=== PATIENT | male | born 1950 | race Caucasian/White ===

== ENCOUNTER 2024-02-29 06:50 | Day surgery (SDC) | payer MEDICARE, MEDICAID, SELFPAY ==
[2024-02-28 14:28] VITALS: BMI 22.6
[2024-02-29] VITALS (9 sets, daily range): BP systolic 96–115; BP diastolic 61–79; PULSE 69–86; RESP 11–18; TEMP 36.7–37.1; O2SAT 94–100; BMI 21.6
--- NOTE | 2024-02-29 07:00 | SUR.PREOP ---
PATIENT ARRIVES TO [facility] AT 0650 FOR COLONOSCOPY PROCEDURE. PER PATIENT LAST BOWEL MOVEMENT IS DARK BROWN. THIS NURSE ASKS PATIENT TO TRY AND HAVE A BOWEL MOVEMENT SO COLOR AND CONSISTENCY CAN BE CONFIRMED. PATIENT ATTEMPTS TO DEFECATE BUT IS UNABLE TO DO SO. LUCIE BARKLEY CALLS TO INFORM HIM. ORDERS A WATER ENEMA. LUCIE RN ADMINISTERS ENEMA, PATIENT TOLERATES 750ML OF ENEMA AND RETURN IS DARK BROWN LIQUID. LUCIE BARKLEY CALLS TO INFORM HIM OF ENEMA RETURN AND HE SAYS IT IS OKAY TO PROCEED WITH PROCEDURE. PATIENT INFORMED AND BROUGHT TO PRE-OP.
[2024-02-29] MEDS: MIDAZOLAM INJ 1 MG/ML VIAL 2 ML (ASD USE ONLY) 2 MG IV (07:52)
[2024-02-29] MEDS: DiphenhydrAMINE INJ 50 MG/ML VIAL 25 MG IV (07:52)
[2024-02-29] MEDS: fentaNYL CIT INJ 50 mCg/ML AMP 2ML (ASD USE ONLY) IV (07:52)
== END 2024-02-29 09:10 | disposition home or self-care (01) ==
PROVIDERS: PCP Family Medicine; Referring Provider Surgery; Visit Provider Surgery
PROC: 0DBE8ZX Excision of Large Intestine, Via Natural or Artificial Opening Endoscopic, Diagnostic (ICD-10-PCS; CPT 45380; principal; 2024-02-29 08:00)
DX: K62.89 Other specified diseases of anus and rectum (principal); K64.5 Perianal venous thrombosis; K57.30 Diverticulosis of large intestine without perforation or abscess without bleeding
CPT/HCPCS: 45378; J1200; J2250; J3010

== ENCOUNTER 2024-04-07 06:45 | Day surgery (SDC) | payer MEDICARE, MEDICAID, SELFPAY ==
[2024-04-07] VITALS (12 sets, daily range): BP systolic 112–133; BP diastolic 73–86; PULSE 67–78; RESP 11–18; TEMP 36.7–37; O2SAT 95–100; BMI 20.5
[2024-04-07] MEDS: SODIUM CHLORIDE 0.9% 100 ML IV (07:29)
[2024-04-07] MEDS: fentaNYL CIT INJ 50 mCg/ML AMP 2ML (ASD USE ONLY) IV (07:30)
[2024-04-07] MEDS: DiphenhydrAMINE INJ 50 MG/ML VIAL 25 MG IV (07:32)
--- NOTE | 2024-04-07 07:33 | SUR.PREOP ---
INFORMED THAT PATIENT'S BLOOD SUGAR IS 76. NO HYPOGLYCEMIC SYMPTOMS PRESENT AT THIS TIME. NO NEW ORDERS RECEIVED.
[2024-04-07] MEDS: MIDAZOLAM INJ 1 MG/ML VIAL 2 ML (ASD USE ONLY) 2 MG IV (07:41)
--- NOTE | 2024-04-07 09:25 | SUR.PHASEII ---
pt comes from a facility with a caregiver, per career center advisor pt does not have a steady gait and is at high risk for falls. pt stayed longer in recovery due to waiting on caregivers arrival and the assistance the pt required with getting dressed. pt was sent to facility with career center advisor, d/c instructions given to pt and caregiver. no concerns at this time from pt or caregiver.
== END 2024-04-07 09:10 | disposition home or self-care (01) ==
PROVIDERS: PCP Physician Assistant; Referring Provider Surgery; Visit Provider Surgery
PROC: 0DBE8ZX Excision of Large Intestine, Via Natural or Artificial Opening Endoscopic, Diagnostic (ICD-10-PCS; CPT 45380; principal; 2024-04-07 07:30)
DX: D12.2 Benign neoplasm of ascending colon (principal); K64.1 Second degree hemorrhoids; K64.5 Perianal venous thrombosis; K57.31 Diverticulosis of large intestine without perforation or abscess with bleeding
CPT/HCPCS: 45385; 45380; J1200; J2250; J3010; J7050

== ENCOUNTER → 2024-08-30 | Outpatient (CLI) | payer MEDICARE, MEDICAID, SELFPAY ==
--- NOTE | 2024-08-30 14:45 | XR_ITS ---
Examination: CT abdomen with intravenous contrast CT pelvis with intravenous contrast 2-D coronal reconstructions 2-D sagittal reconstructions Date and time of exam:August 30, 2024 at 1455 hours INDICATIONS: Left upper quadrant abdominal pain beginning one week ago. CTDI: vol (mGy) 6.24 DLP: (mGycm) 385 Technique: Multiple axial sections of the abdomen and pelvis have been obtained. 64 slice high-resolution scanner used. 3 mm axial sections have been obtained, post intravenous injection 60 cc [id number] 2-D sagittal, coronal reconstructions obtained. Low dose protocols were performed. One or more of the following dose reduction techniques were used; automated exposure control, adjustment of the mA and/or KV according to patient size, use of iterative reconstruction technique. Findings: No focal liver or splenic lesions No gallstones No pancreatic mass. Aorta normal size Left renal cysts, the largest 4.3 cm No renal or ureteral calculi Large amounts of stool throughout the entire colon including the rectum with wall thickening of the rectum No diverticulitis No bowel obstruction Urinary bladder wall thickening 2 mm anteriorly Severe osteopenia with advanced lumbar disc narrowing IMPRESSION: Large amounts of stool throughout the entire colon including the rectum with probable proctitis pattern involving the rectum with rectal wall thickening, recommend direct inspection of the rectum to exclude rectal tumor
== END | disposition home or self-care (01) ==
PROVIDERS: PCP Physician Assistant; Referring Provider Physician Assistant; Visit Provider Physician Assistant
DX: K62.89 Other specified diseases of anus and rectum (principal); R10.12 Left upper quadrant pain
CPT/HCPCS: 74177; A4649; Q9967

== ENCOUNTER 2025-01-12 15:10 | Inpatient (IN) | payer MEDICARE, MEDICAID, SELFPAY ==
--- NOTE | 2025-01-12 15:46 | XR_ITS ---
EXAMINATION: Lumbar spine 3 views TECHNIQUE: AP lateral: Lateral lower lumbar spine 3 views Date and time: January 12, 2025, 1554 hours INDICATIONS: Low back pain, chronic worse since January 13, 2025 FINDINGS: Lumbar dextroscoliosis 12 degrees Prominent lumbar spondylosis No acute lumbar fracture Moderate to advanced diffuse lumbar degenerative disc disease IMPRESSION: Moderate to advanced diffuse lumbar degenerative disc disease
--- NOTE | 2025-01-12 15:47 | PD.EDRME ---
Rapid Medical Screening Exam RME Arrival date/time: 01/12/25 15:10 79-year-old male with a history of developmentally delayed is brought to the emergency room by the caregiver with a chief complaint of the patient having increased lumbar back pain. According to the caregiver the patient was walking yesterday with no complications. Today the patient does not want to stand up and is unable to walk on his own I have greeted and performed a focused initial assessment of this patient. A comprehensive ED assessment and evaluation of the patient, analysis of all test results, and completion of the medical decision making process will be conducted by additional ED providers. Chief Complaint: Weakness Time Seen by Provider: 01/12/25 15:35 Vital signs reviewed by provider: Yes Exam: Lumbar back pain with palpation GCS of 15 Clinical Impression: Electrolyte imbalance/lumbar back pain
[2025-01-12 15:48] VITALS: BP 99/66; PULSE 113; RESP 19; TEMP 37.2; O2SAT 98; BMI 21.6
[2025-01-12] MEDS: KETOROLAC INJ 60 MG/2 ML VIAL 30 MG IM (16:12)
[2025-01-12 16:40] LABS: Basophils # (Auto) 0.0 Thou/mm3 (0.0-0.2); Basophils % (Auto) 1 % (0-2.5); Eosinophils # (Auto) 0.0 Thou/mm3 (0.0-0.5); Eosinophils % (Auto) 0 % (0-10); Hematocrit 44.6 % (41.0-53.0); Hemoglobin 15.3 g/dL (13.5-16.0); Immature Granulocytes Auto 0.03 Thou/mm3 (0.00-0.00); Lymphocytes # (Auto) 0.7 Thou/mm3 (1.0-4.8); Lymphocytes % (Auto) 8 % (10-50); Mean Corpuscular HGB Conc 34.3 g/dl (31.0-37.0); Mean Corpuscular Hemoglobin 32.3 pg (25.0-35.0); Mean Corpuscular Volume 94 fL (80-100); Monocytes # (Auto) 0.5 Thou/mm3 (0.0-0.8); Monocytes % (Auto) 6 % (0-12); Neutrophils # (Auto) 7.5 Thou/mm3 (1.8-7.7); Neutrophils % (Auto) 85 % (37-80); Nucleated Red Blood Cell # 0.00 Thou/mm3 (0.00-0.00); Nucleated Red Blood Cell % 0 /100 WBC (0); Platelet Count 210 Thou/mm3 (140-440); RDW Standard Deviation 46.7 fL (35.1-43.9); Red Blood Count 4.73 Miln/mm3 (4.50-5.90); White Blood Count 8.8 Thou/mm3 (3.8-10.6)
[2025-01-12 16:57] LABS: Alanine Aminotransferase 25 U/L (10-49); Albumin, Serum 4.5 gm/dL (3.4-4.8); Albumin/Globulin Ratio 2.4 (1.2-2.2); Alkaline Phosphatase 81 U/L (46-116); Anion Gap 13 (7-16); Aspartate Amino Transferase 53 U/L (0-34); BUN/Creatinine Ratio 23 Ratio (12-20); Bilirubin,Total 0.4 mg/dL (0.3-1.2); Blood Urea Nitrogen 18 mg/dL (9-23); Calcium 8.7 mg/dL (8.3-10.6); Calcium (Corrected) 8.7 mg/dL (8.5-10.1); Carbon Dioxide 22.5 mMol/L (20.0-31.0); Chloride 101 mMol/L (98-107); Creatinine (Component) 0.8 mg/dL (0.6-1.3); Estimated Creatinine Clearance 74.9 mL/min (>60); Globulin 1.9 gm/dL (2.3-3.5); Glucose 181 mg/dL (74-106); Osmolality,Calculated 278 (275-295); Potassium 4.1 mMol/L (3.4-5.1); Sodium 136 mMol/L (136-145); Total Protein 6.4 gm/dL (5.7-8.2); eGFR > 60 See Note
[2025-01-12 17:05] LABS: Collection Type, Urine Clean Catch
[2025-01-12 17:29] LABS: Bilirubin,Urine Negative (Negative); Blood,Urine 3+ (Negative); Color,Urine Yellow (Lt Yel-Yel); Culture Indicated,Urine Not Indicated; Glucose, Urine 4+ (Negative); Ketones,Urine Negative (Negative); Leukocyte Esterase,Urine Negative (Negative); Nitrite,Urine Negative (Negative); PH,Urine 6.0 (5.0-7.0); Protein,Urine 1+ (Neg - Trace); RBC,Urine 5 /hpf (0-3); Specific Gravity,Urine 1.030 (1.001-1.035); Squamous Epithelial Cell,Urine 1 /hpf (0-5); Urobilinogen,Urine Negative mg/dL (0.0-1.0); WBC,Urine 2 /hpf (0-5)
[2025-01-12 17:35] LABS: Clarity,Urine Hazy (Clear/Hazy)
--- NOTE | 2025-01-12 18:38 | PC.NURSE ---
PT ABLE TO STAND UP IN LOBBY AT THIS TIME W/ASSISTANCE OF CAREGIVER. WHEN PT FIRST CAME IN UNABLE TO STAND AT ALL, LEGS FLACCID PT UNABLE TO PUT ANY WEIGHT ON THEM
--- NOTE | 2025-01-12 18:52 | PD.EDWEAK ---
ED Weakness RME/HPI General Chief complaint: Weakness Stated complaint: UNABLE TO WALK Time Seen by Provider: 01/12/25 15:35 Arrival date/time: 01/12/25 15:10 RME / HPI RME / HPI Narrative: 01/12/25 15:10 79-year-old male with a history of developmentally delayed is brought to the emergency room by the caregiver with a chief complaint of the patient having increased lumbar back pain. According to the caregiver the patient was walking yesterday with no complications. Today the patient does not want to stand up and is unable to walk on his own I have greeted and performed a focused initial assessment of this patient. A comprehensive ED assessment and evaluation of the patient, analysis of all test results, and completion of the medical decision making process will be conducted by additional ED providers. DR. NASCIMENTO MAIN ED EVALUATION: Patient with known Hx of Type II DM and HTN typically ambulates with assist, unable to assume upright position from bed this AM and reports difficulty in bearing weight. No LE radiculopathy, although reports chronic back pain. No urinary or bowel incontinence. Denies urinary frequency, urgency, and dysuria. Denies fever and chills. PMH: No prior CVA/TIA, Hypercholesterolemia, HTN, COPD, Diverticulosis, Hemorrhoids, Arthritis, Diabetes Mellitus Type 2, Anxiety PSH: Tonsillectomy, Hernia Repair, Lumbar Fusion, Melanoma Excision Allergies: NKDA Social: Negative Exam: Lumbar back pain with palpation GCS of 15 Impression: Electrolyte imbalance/lumbar back pain Related Data Home Medications ?Medication ?Instructions ?Recorded ?Confirmed amitriptyline 25 mg tablet 25 mg PO HS 02/29/24 04/07/24 benztropine 1 mg tablet 1 mg PO HS 02/29/24 04/07/24 dorzolamide 22.3 mg-timolol 6.8 1 drp ophthalmic (eye) BID 02/29/24 04/07/24 mg/mL eye drops empagliflozin 5 mg-metformin 1,000 1 tab PO BID 02/29/24 04/07/24 mg tablet (Synjardy) erythromycin 5 mg/gram (0.5 %) eye 1 applic ophthalmic (eye) TID 02/29/24 04/07/24 ointment latanoprost 0.005 % eye drops 1 drp ophthalmic (eye) HS 02/29/24 04/07/24 montelukast 10 mg tablet 10 mg PO HS 02/29/24 04/07/24 quetiapine 200 mg tablet 200 mg PO BID 02/29/24 04/07/24 risperidone 3 mg tablet 3 mg PO HS 02/29/24 04/07/24 simvastatin 20 mg tablet 20 mg PO HS 02/29/24 04/07/24 ferrous sulfate 325 mg (65 mg 325 mg PO .COMPLEX 04/07/24 04/07/24 iron) tablet (FeroSul) fluticasone propionate 50 1 spray intranasal DAILY 04/07/24 04/07/24 mcg/actuation nasal spray,suspension loratadine 10 mg tablet (Allergy 10 mg PO Q24H 04/07/24 04/07/24 Relief (loratadine)) Allergies Allergy/AdvReac Type Severity Reaction Status Date / Time No Known Allergies Allergy Verified 01/12/25 15:14 Review of Systems Review of Systems Systems Reviewed: All systems reviewed, normal except as documented Past Medical History Past Medical History CARDIAC: Positive Hypercholesterolemia and Hypertension RESPIRATORY: Positive Chronic Obstructive Pulmonary Disease (COPD) GASTROINTESTINAL: Positive Diverticulosis and Hemorrhoids MUSCULOSKELETAL: Positive Arthritis ENDOCRINE: Positive Diabetes Mellitus Type 2 PSYCHO/SOCIAL: Positive Anxiety Surgical History SURGICAL: Positive Tonsillectomy ED Exam Narrative Physical exam: GEN. APPEARANCE: The patient is alert awake oriented X-3 under no distress, lying down comfortably, chronically ill-appearing c/o BLE weakness. Patient has good eye contact. Patient is cooperative. VITALS: All vitals were reviewed and the pulse ox is 99%, which is normal according to my interpretation HEENT: Normocephalic, atraumatic and nontender. Pupils are equal and reactive. Oral mucosa is moist. NECK: Supple, nontender, no meningismus, no JVD. There is no thyromegaly and no lymphadenopathy. CHEST: Nontender on palpation no deformity and no crepitus. CARDIOVASCULAR: Heart regular rhythm, no murmur or gallop rub or extra beats. LUNGS: Clear to auscultation bilaterally with symmetrical chest rise. No laboring tachypnea or wheezing. No intercostal subcostal retraction. No rales and no rhonchi. ABDOMEN: Soft, flat, nontender to palpation, no guarding or rebound tenderness. There are no abnormal masses palpated. No pulsatile masses or bruits. Active and normal bowel sounds. EXTREMITIES: Normal inspection and palpation. No edema. No cyanosis. Patient is able to move all 4 extremities well SKIN: Warm and dry, no rashes noted. MUSCULOSKELETAL: No lumbar or midline bony tenderness. There is no CVA tenderness. No paraspinal muscle spasm or tenderness. NEURO: Cranial nerves II through XII grossly intact. UE motor function 5/5, LE motor function 5/5 right, and 4/5 on left, negative straight leg raise test, no clonus. DTR's 2+ at L-4 and mute at S-1. PSYCHIATRIC: Patient is in normal mood and affect, cooperative. LYMPHATICS: No major lymphadenopathy noted. Course Quality Measures none Orders Category Date Time Status Bladder Scan NEEDED Care 01/12/25 23:45 Active Enema Administration NOW Care 01/12/25 23:47 Active In and Out Catheter X1 Care 01/12/25 23:[address] abdomen pelvis wo con Stat Exams 01/12/25 22:[address] head/brain wo con Stat Exams 01/12/25 18:53 Completed XR chest 1V portable Stat Exams 01/12/25 19:43 Completed XR lumbar spine 2-3V Stat Exams 01/12/25 15:46 Completed Blood Culture (Lab) Stat Lab 01/13/25 00:35 Ordered CBC Stat Lab 01/12/25 16:14 Completed CMP [Comprehensive Metabolic Panel] Stat Lab 01/12/25 16:14 Completed Lactic Acid [Lactate (Lactic Acid)] Stat Lab 01/12/25 19:56 Completed Lactic Acid, 3 HR Stat Lab 01/12/25 23:12 Completed Sed Rate (ESR) Stat Lab 01/12/25 16:14 Completed UA, C/S IF [Urinalysis, C/S if Indicated] Stat Lab 01/12/25 16:50 Completed Ketorolac Inj [Toradol Inj] Med 01/12/25 15:46 Discontinued 30 mg IM X1 ONE Lactulose Syrup [Enulose Syrup] Med 01/13/25 00:18 Active 20 gm PO X1 PRN Milk Of Magnesia Susp [Mom Susp] Med 01/13/25 00:17 Discontinued 30 ml PO X1 ONE Piper/Tazo 3.375 gm Premix [Zosyn] Med 01/13/25 00:33 Active 3.375 gm in 50 ml IV X1 Sodium Chloride 0.9% 1000 ml [Ns] 1,000 ml Med 01/12/25 19:43 Discontinued IV 999 mls/hr Sodium Chloride 0.9% 1000 ml [Ns] 1,000 ml Med 01/12/25 21:17 Discontinued IV 999 mls/hr Vital Signs Vital signs: Vital Signs Temperature 99.0 F 01/12/25 15:48 Pulse Rate 113 H 01/12/25 15:48 Respiratory Rate 19 01/12/25 15:48 Blood Pressure 99/66 01/12/25 15:48 Pulse Oximetry (%) 98 01/12/25 15:48 Oxygen Delivery Method Room Air 01/12/25 15:48 Weakness MDM Narrative MDM Narrative:: Scribe Attestation: IDena, am scribing for and in the presence of Dr. Chatman. Provider Notation: Although this document has been carefully reviewed, there may still be some phonetic and other typographical errors. These errors are purely grammatical due to imperfections in the software program and should not be construed in any way to compromise the substance of the patient's medical care during this visit. Patient with known Hx of Type II DM and HTN typically ambulates with assist, unable to assume upright position from bed this AM and reports difficulty in bearing weight. No LE radiculopathy, although reports chronic back pain. Please see PE findings. Laboratory markers, including CBC, serum chemistries, and UA were essentially unremarkable. L-spine x-ray demonstrates scoliosis and advance degenerative changes. CXR unremarkable. Head/Brain CT without acute process. Patient's blood pressure in the 80-90 systolic and the maps in 50-60 range, further expaninding workup. Lactic acid obtained at 3.2, CT scan was then ordered of the abdomen/pelvis. Final results are currently pending. Given relative hypotension and suspected possible infection, consulted hospitalist to personally evaluate patient for consideration of admission. Final diagnoses include hypotension and undifferentiated sepsis without definite source. Patient data External records reviewed:: [facility] previous records (Reviewed prior ED records from 05/12/23. Patient was seen for Urinary retention.) Clinical information provided by:: patient Social determinants that could affect healthcare access:: none Patient has the following chronic illnesses:: Hypercholesterolemia, HTN, COPD, Diverticulosis, Hemorrhoids, Arthritis, Diabetes Mellitus Type 2, Anxiety How is presenting disease/condition affected by chronic disease/condition?: exacerbated by Evaluation data The following diagnostics were reviewed and interpreted by me:: lab results and radiology exam(s) Lab and/or radiology exams considered but not ordered:: None Interpretation Summary: RADIOLOGY Head/Brain CT: Findings: There is no evidence of intracranial hemorrhage, mass effect or midline shift. There are periventricular white matter hypodensities, compatible with chronic small vessel ischemia. The CSF spaces are prominent consistent with volume loss. There is atheromatous calcification of the intracranial arteries. Basal ganglia calcifications are present bilaterally. The calvarium is unremarkable. The mastoid air cells and the visualized paranasal sinuses are clear. Postoperative changes are seen in the left lobe globe. Impression: No evidence of intracranial hemorrhage, mass effect or midline shift. Chronic small vessel ischemia and volume loss. Chest X-Ray: FINDINGS: Mild prominence left ventricle No pneumonia or pulmonary edema Prominent osteopenia IMPRESSION: No pneumonia or pulmonary edema L-Spine X-Ray: FINDINGS: Lumbar dextroscoliosis 12 degrees Prominent lumbar spondylosis No acute lumbar fracture Moderate to advanced diffuse lumbar degenerative disc disease IMPRESSION: Moderate to advanced diffuse lumbar degenerative disc disease Abdomen/Pelvis CT: Findings: Bibasilar pneumonia No focal liver or splenic lesions No gallstones No pancreatic or adrenal mass Perinephric stranding benign 3 cm left renal cyst No renal or ureteral calculi, no hydronephrosis Appendix axial image 169 is mildly thickened, possible minimal periappendiceal inflammatory change No pelvic abscess Bladder intact Large amount of stool in the rectum IMPRESSION: Mild perinephric stranding Appendix is thickened, 8 mm possible minimal periappendiceal inflammatory change, clinical correlation advised If acute appendicitis is a clinical consideration recommend repeat CT abdomen pelvis post intravenous contrast Medications / Prescriptions Medications or Prescriptions considered but not ordered:: None Medication administrations:: Medication Administration History Piperacillin/Tazobactam/Dextrose (Zosyn) 3.375 gm in 50 mls @ 100 mls/hr IV X1 ONE; Protocol Stop: 01/13/25 01:02 Lactulose (Lactulose Syrup 20 Gm/30 Ml Udc) 20 gm PO X1 PRN; Protocol PRN Reason: constipation Stop: 02/12/25 00:17 Discontinued Medications Sodium Chloride (Ns) 1,000 mls @ 999 mls/hr IV .Q1H1M ONE Stop: 01/12/25 20:43 Last Infusion: 01/12/25 22:29 Dose: Infused Documented By: Admin: 01/12/25 19:51 Dose: 999 mls/hr Documented By: DT Sodium Chloride (Ns) 1,000 mls @ 999 mls/hr IV .Q1H1M ONE Stop: 01/12/25 22:17 Last Infusion: 01/12/25 22:30 Dose: Infused Documented By: Admin: 01/12/25 21:24 Dose: 999 mls/hr Documented By: DT Ketorolac Tromethamine (Ketorolac Inj 60 Mg/2 Ml Vial) 30 mg IM X1 ONE Stop: 01/12/25 15:47 Last Admin: 01/12/25 16:12 Dose: 30 mg Documented By: IRENA Magnesium Hydroxide (Milk Of Magnesia Susp 30 Ml Udc) 30 ml PO X1 ONE; Protocol Stop: 01/13/25 00:18 See above if any Consultations Consultation(s) initiated? (list below): Yes Consultation #1 (Physician, Specialty, Details): Discussed with resident physician, Dr. Foote, for admission. Reviewed the patient?s HPI, PMHx, lab and/or radiology results. Discussed treatment plan. Will consult an admission to the hospitalist. Time: 22:18 Diagnosis Weakness Differential Diagnosis: acute myocardial infarction, anemia, hypoglycemia, rhabdomyolysis, sepsis and dehydration Most likely diagnosis given after review of the tests above:: Hypotension and undifferentiated sepsis without definite source. Admission Indicated Admission indicated?: indicated Explain why admission is indicated or not indicated:: Hypotension and undifferentiated sepsis without definite source. Admission Request Was there a request for admission?: Yes Admission Attestation Admission request attestation: Discussed case with [] from Hospitalist service regarding admission. Discussed patients ED course, exam findings, labs, and radiology results. The Hospitalist [agrees,declines] to accept the patient for admission. Disposition Plan Disposition Plan: Admit Critical Care Time Critical Care Time Critical Care Time: Yes Total Critical Care Time (min.): 45 Attestation: The high probability of sudden, clinically significant deterioration in the patient?s condition required the highest level of my preparedness to intervene urgently. The services I provided to this patient were to treat and/or prevent clinically significant deterioration. Services included the following: chart data review, reviewing nursing notes and/or old charts, documentation time, taxation consultant collaboration regarding findings and treatment options, medication orders and management, direct patient care, vital sign assessments and ordering, interpreting and reviewing diagnostic studies and lab tests. Aggregate critical care time includes only time during which I was engaged in work directly related to the patient?s care, as described above, whether at bedside or elsewhere in the Emergency Department. It did not include time spent performing other reported procedures or the services of residents, students, nurses or physician assistants. Discharge Plan Plan Patient Disposition: Admit Acute Care w/in Hospital Prescriptions/Referrals Prescriptions/Med Rec: No Action latanoprost 0.005 % drops 1 drp OPHTHALMIC (EYE) HS Rx Instructions: LEFT EYE quetiapine 200 mg tablet 200 mg PO BID risperidone 3 mg tablet 3 mg PO HS amitriptyline 25 mg tablet 25 mg PO HS simvastatin 20 mg tablet 20 mg PO HS erythromycin 5 mg/gram (0.5 %) ointment 1 applic OPHTHALMIC (EYE) TID benztropine 1 mg tablet 1 mg PO HS dorzolamide-timolol 22.3-6.8 mg/mL drops 1 drp OPHTHALMIC (EYE) BID montelukast 10 mg tablet 10 mg PO HS Synjardy 5-1,000 mg tablet 1 tab PO BID fluticasone propionate 50 mcg/actuation spray,suspension 1 spray intranasal DAILY ferrous sulfate [FeroSul] 325 mg (65 mg iron) tablet 325 mg PO .COMPLEX Rx Instructions: 325 mg orally M/W/F; loratadine [Allergy Relief (loratadine)] 10 mg tablet 10 mg PO Q24H Referrals: Demetrio Mcbride MD [Primary Care Provider, Family Practice] - In 1 week Problem List Clinical Impression: Hypotension, Sepsis Patient/Caregiver Discharge Instructions Print Language: Japanese Stand Alone Forms: Nasreen Award Info., Patient Portal Info Letter
--- NOTE | 2025-01-12 18:53 | XR_ITS ---
Examination: CT brain head without contrast. 2-D sagittal coronal reconstructions Date and time of exam: January 12, 2025, 0926 hours INDICATIONS: Headaches left-sided facial numbness beginning 1 hour ago CTDI: vol (mGy): 49.1 DLP: (mGycm): 954 Technique: Multiple CT axial sections of the brain have been obtained, 5 mm slice thickness. Contrast has not been administered. 2-D sagittal, coronal reconstructions have been obtained Low dose protocols were performed. One or more of the following dose reduction techniques were used; automated exposure control, adjustment of the mA and/or KV according to patient size, use of iterative reconstruction technique. Findings: No significant ventricular enlargement. Intra-axial or extra-axial hemorrhage density is not seen. No mass effect or midline shift Basal cisterns are not remarkable. Fourth ventricle is midline. Cranial vault intact. Impression: Negative for acute hemorrhage, mass effect or midline shift
[2025-01-12 19:42] LABS: Sed Rate (ESR) 17 mm/hr (0-20)
--- NOTE | 2025-01-12 19:43 | XR_ITS ---
EXAMINATION: AP chest single view TECHNIQUE: AP portable semiupright chest single view Date and time: January 12, 2025, 1953 hours, comparison August 06, 2012 INDICATIONS: Hypertension today. FINDINGS: Mild prominence left ventricle No pneumonia or pulmonary edema Prominent osteopenia IMPRESSION: No pneumonia or pulmonary edema
[2025-01-12] MEDS: SODIUM CHLORIDE 0.9% 1000 ML 1,000 ML 999 ML IV ×2 (19:51→21:24)
--- NOTE | 2025-01-12 19:55 | PRELIM_ITS ---
CT scan of the head without intravenous contrast (axial sections with sagittal and coronal reformats) January 12, 2025 1906 hours Clinical history: Lower extremity weakness Comparison: No prior study is available for comparison. Findings: There is no evidence of intracranial hemorrhage, mass effect or midline shift. There are periventricular white matter hypodensities, compatible with chronic small vessel ischemia. The CSF spaces are prominent consistent with volume loss. There is atheromatous calcification of the intracranial arteries. Basal ganglia calcifications are present bilaterally. The calvarium is unremarkable. The mastoid air cells and the visualized paranasal sinuses are clear. Postoperative changes are seen in the left lobe globe. Impression: No evidence of intracranial hemorrhage, mass effect or midline shift. Chronic small vessel ischemia and volume loss. Report Electronically Signed By: Ashley Gauthier 01/12/2025 7:54:36 PM [EST]
[2025-01-12 19:59] VITALS: BP 79/68; PULSE 91; RESP 14; O2SAT 99
[2025-01-12 20:13] LABS: Lactate (Lactic Acid) 4.6 mMol/L (0.4-2.0)
[2025-01-12 20:16] VITALS: BP 84/52; PULSE 90; RESP 14; O2SAT 99
[2025-01-12 20:44] VITALS: BP 90/56; PULSE 91; RESP 14; O2SAT 99
[2025-01-12 22:29] VITALS: BP 103/66; PULSE 89; RESP 14; O2SAT 99
--- NOTE | 2025-01-12 22:32 | XR_ITS ---
Examination: CT abdomen and pelvis without contrast. Coronal 3-D reconstructions. Sagittal 2-D reconstructions. Date and time of exam: January 12, 2025, 11:01 p.m. INDICATIONS: Sepsis alert, lower back pain 6 months CTDI: vol (mGy): 10.61 DLP: (mGycm): 726 Technique: Axial images of the abdomen have been obtained, 3 mm slice thickness Intravenous contrast material has not been administered. Low dose protocols were performed. One or more of the following dose reduction techniques were used; automated exposure control, adjustment of the mA and/or KV according to patient size, use of iterative reconstruction technique. Findings: Bibasilar pneumonia No focal liver or splenic lesions No gallstones No pancreatic or adrenal mass Perinephric stranding benign 3 cm left renal cyst No renal or ureteral calculi, no hydronephrosis Appendix axial image 169 is mildly thickened, possible minimal periappendiceal inflammatory change No pelvic abscess Bladder intact Large amount of stool in the rectum IMPRESSION: Mild perinephric stranding Appendix is thickened, 8 mm possible minimal periappendiceal inflammatory change, clinical correlation advised If acute appendicitis is a clinical consideration recommend repeat CT abdomen pelvis post intravenous contrast
[2025-01-12 23:06] LABS: Reflex Lactate? Y
[2025-01-12 23:15] LABS: Lactic Acid, 3 HR 3.2 mMol/L (0.4-2.0)
[2025-01-13] VITALS (9 sets, daily range): BP systolic 93–107; BP diastolic 58–67; PULSE 82–92; RESP 14–20; TEMP 36.3–38; O2SAT 94–99; BMI 21.5
--- NOTE | 2025-01-13 00:31 | PRELIM_ITS ---
CT scan of the abdomen and pelvis without intravenous contrast (axial sections with sagittal and coronal reformats). January 12, 2025 at 2301 hours Clinical History: Rule out sepsis source. Comparison: No prior study is available for comparison. Findings: The evaluation of this study is limited by streak artifact from the arms. There are bibasilar densities which may represent atelectasis and/or pneumonia. Small bilateral pleural effusions are seen. The heart is normal in size. Coronary artery calcifications are noted. Trace pericardial effusion is present. A small hiatal hernia is present. The liver, gallbladder, pancreas, spleen, and adrenals are unremarkable on this noncontrast study. Extrarenal pelves are seen bilaterally. Nonspecific bilateral perinephric stranding is noted. There are a few left renal cysts, the largest measuring 4.5 cm. A moderate amount of fecal material is present in the colon and rectum, consistent with constipation. There are colonic diverticula without evidence of diverticulitis. The appendix is dilated, measuring 10 mm, and appears somewhat thickened with possible early periappendiceal fat stranding. There is no mesenteric or retroperitoneal adenopathy.There is mild nonspecific circumferential urinary bladder wall thi ckening; cystitis is not excluded. Prostatic calcifications are seen. There is no free fluid or free air. There are pelvic phleboliths.Degenerative changes are noted in the spine with multilevel foraminal and spinal canal stenosis. The bones are osteopenic. 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 A partial L5-S1 spinal fusion is noted. Impression: Slightly limited evaluation as described. 1. Possible acute appendicitis. Recommend clinical correlation and follow-up imaging if clinically necessary. 2. Bibasilar pulmonary densities, may represent atelectasis and/or pneumonia. 3. Small bilateral pleural effusions. Recommend follow-up to document resolution.3. Possible cystitis. Recommend clinical correlation. 4. No evidence of bowel obstruction, free air, or abscess. 5. Other findings are as described above. Discussion Details: Results Discussed With : Dr. Chatman at 12:27 AM 01/13/2025 Report Electronically Signed By: Saad Up 01/13/2025 12:30:58 AM [EST]
[2025-01-13] MEDS: PIPER/TAZO 3.375 GM PREMIX 3.375 GM/50 ML BAG IV (00:58)
--- NOTE | 2025-01-13 01:33 | PD.RESHP ---
Documentation for date of: 01/13/25 [facility] History of Present Illness History of present illness: 79-year-old male with a history of autism, mild mitral regurg, and type 2 diabetes mellitus presents with right-sided abdominal pain radiating to the groin, along with lower leg weakness and balance difficulties, which have been present since this morning. The caregiver reports that the patient has been unable to bear weight and unusually lethargic, sleeping throughout the day. The patient denies urinary symptoms, bowel incontinence, fever, chills, chest pain, shortness of breath, headaches, nausea, or vomiting. His last bowel movement was two days ago. ED course: Initial vitals include T 99, BP 99/66, HR 113, RR 19, O2 sat 98% on room air. CBC within normal range. Notable labs include creatinine 0.8, lactic acid 4.6 with repeat 3.2 after [address] negative. Chest x-ray negative. CT Abdo pelvis showed appendiceal thickening, 8 mm possible minimal periappendiceal inflammatory change, 3 cm left renal cyst. Past medical history: As stated above. Past surgical history: Tonsillectomy, Hernia Repair, Lumbar Fusion, Melanoma Excision. Allergies: NKDA. Family history: Noncontributory. Social history: No alcohol use, no smoking, no illicit drug use. Patient admitted for potential acute appendicitis pending surgical evaluation Review of Systems Review of Systems Narrative Review of Systems: All systems reviewed negative unless stated otherwise above. Exam Vital Signs Temp Pulse Resp BP Pulse Ox O2 Del Method O2 Flow Rate 99.0 F 92 14 94/58 L 99 Nasal Cannula 2 01/12/25 15:48 01/13/25 00:36 01/13/25 00:36 01/13/25 00:36 01/13/25 00:36 01/13/25 00:36 01/13/25 00:36 Narrative Exam General: AOx3, no acute distress, able to speak full sentences HEENT: NC/AT, mucous membranes moist, bilateral sclera anicteric Cardiovascular: regular rate and rhythm, S1/S2 present, known mitral regurg Pulmonary: clear to auscultation bilaterally, no rales/rhonchi/wheezes Abdominal: soft, tenderness to the right lower quadrant, distended, no rebound/guarding, normal bowel sounds present Musculoskeletal: normal ROM, no peripheral edema, straight leg test negative, no clonus Skin: warm and dry, intact, no rashes, Neuro: CN II-XII intact, no focal deficits Results: Labs 01/13/25 05:45 01/13/25 05:45 Labs: Short CBC 01/12/25 Range/Units 16:14 WBC 8.8 (3.8-10.6) Thou/mm3 Hgb 15.3 (13.5-16.0) g/dL Hct 44.6 (41.0-53.0) % Plt Count 210 (140-440) Thou/mm3 BMP 01/12/25 16:14 Sodium 136 Potassium 4.1 Chloride 101 Carbon Dioxide 22.5 BUN 18 Creatinine 0.8 Glucose 181 H Calcium 8.7 Liver Function 01/12/25 Range/Units 16:14 Total Bilirubin 0.4 (0.3-1.2) mg/dL AST 53 H (0-34) U/L ALT 25 (10-49) U/L Alkaline Phosphatase 81 (46-116) U/L Albumin 4.5 (3.4-4.8) gm/dL Urine 01/12/25 Range/Units 16:50 Urine Color Yellow (Lt Yel-Yel) Urine Clarity Hazy (Clear/Hazy) Urine pH 6.0 (5.0-7.0) Ur Specific [place] 1.030 (1.001-1.035) Urine Protein 1+ A (Neg - Trace) Urine Glucose (UA) 4+ A (Negative) Quality Measures Quality Measures VTE prophylaxis Advance care planning discussed with:: patient Medications Home Medications and Allergies Home Medications ?Medication ?Instructions ?Recorded ?Confirmed ?Type amitriptyline 25 mg tablet 25 mg PO HS 02/29/24 01/13/25 History benztropine 1 mg tablet 1 mg PO HS 02/29/24 01/13/25 History dorzolamide 22.3 mg-timolol 6.8 1 drp ophthalmic (eye) BID 02/29/24 01/13/25 History mg/mL eye drops empagliflozin 5 mg-metformin 1,000 1 tab PO BID 02/29/24 01/13/25 History mg tablet (Synjardy) erythromycin 5 mg/gram (0.5 %) eye 1 applic Left eye TID 02/29/24 01/13/25 History ointment latanoprost 0.005 % eye drops 1 drp ophthalmic (eye) HS 02/29/24 01/13/25 History montelukast 10 mg tablet 10 mg PO HS 02/29/24 01/13/25 History quetiapine 200 mg tablet 200 mg PO BID 02/29/24 01/13/25 History risperidone 3 mg tablet 3 mg PO HS 02/29/24 01/13/25 History simvastatin 20 mg tablet 20 mg PO HS 02/29/24 01/13/25 History ferrous sulfate 325 mg (65 mg 325 mg PO .COMPLEX 04/07/24 01/13/25 History iron) tablet (FeroSul) fluticasone propionate 50 1 spray intranasal DAILY 04/07/24 01/13/25 History mcg/actuation nasal spray,suspension loratadine 10 mg tablet (Allergy 10 mg PO Q24H 04/07/24 01/13/25 History Relief (loratadine)) Allergies Allergy/AdvReac Type Severity Reaction Status Date / Time piperacillin (From Zosyn) Allergy FEVER Verified 01/13/25 01:51 tazobactam (From Zosyn) Allergy FEVER Verified 01/13/25 01:51 Visit Medications Acetaminophen (Acetaminophen 325 Mg Tablet) 650 mg PO Q6H PRN PRN Reason: PAIN (1-3) OR FEVER > 100.4 Stop: 02/12/25 01:25 Enoxaparin Sodium (Enoxaparin Sod Inj 40 Mg/0.4 Ml Syringe) 40 mg SC QDAY JOHN Stop: 01/27/25 08:59 Lactated Ringer's (Lactated Ringers) 1,000 mls @ 75 mls/hr IV .[id number] JOHN Stop: 01/13/25 14:49 Metronidazole (Flagyl 500 Mg Iv) 500 mg in 100 mls @ 200 mls/hr IV Q8HR JOHN Stop: 01/20/25 01:30 Ciprofloxacin/Dextrose (Cipro Ivpb) 400 mg in 200 mls @ 200 mls/hr IV Q12HR JOHN Stop: 01/20/25 01:30 Lactulose (Lactulose Syrup 20 Gm/30 Ml Udc) 20 gm PO X1 PRN; Protocol PRN Reason: constipation Stop: 02/12/25 00:17 Ondansetron HCl (Ondansetron Inj 2 Mg/Ml Inj 2 Ml) 4 mg IVP Q6H PRN; Protocol PRN Reason: NAUSEA OR VOMITING Stop: 02/12/25 01:25 Discontinued Medications Sodium Chloride (Ns) 1,000 mls @ 999 mls/hr IV .Q1H1M ONE Stop: 01/12/25 20:43 Last Infusion: 01/12/25 22:29 Dose: Infused Sodium Chloride (Ns) 1,000 mls @ 999 mls/hr IV .Q1H1M ONE Stop: 01/12/25 22:17 Last Infusion: 01/12/25 22:30 Dose: Infused Piperacillin/Tazobactam/Dextrose (Zosyn) 3.375 gm in 50 mls @ 100 mls/hr IV X1 ONE; Protocol Stop: 01/13/25 01:02 Last Admin: 01/13/25 00:58 Dose: 100 mls/hr Ketorolac Tromethamine (Ketorolac Inj 60 Mg/2 Ml Vial) 30 mg IM X1 ONE Stop: 01/12/25 15:47 Last Admin: 01/12/25 16:12 Dose: 30 mg Magnesium Hydroxide (Milk Of Magnesia Susp 30 Ml Udc) 30 ml PO X1 ONE; Protocol Stop: 01/13/25 00:18 Last Admin: 01/13/25 01:05 Dose: Not Given Assessment & Plan Plan 79-year-old male with a history of autism, mild mitral regurg, and type 2 diabetes mellitus presents with right-sided abdominal pain radiating to the groin, along with lower leg weakness and balance difficulties, which have been present since this morning. #Possible acute appendicitis Acute onset of right-sided abdominal pain migrating to the groin No nausea/vomiting Afebrile CT Abdo/pelvis showed appendiceal thickening, mild perinephric stranding WBC within normal range Cheek score 3, suggesting unlikely appendicitis Plan ? General Surgery consulted, Dr. Lance elise, to evaluate in a.m. ? N.p.o. for potential surgery ? Ciprofloxacin 400 mg IV every 12 hours + metronidazole 500 mg IV every 8 hours ? LR 1 L 75 cc an hour ? Morphine 2 mg every 4 hours as needed #Allergic reaction Patient developed a low-grade fever, Tmax 100.4 after receiving Zosyn Plan ? Diphenhydramine 25 mg IV x 1 ? Methylprednisolone 60 mg IV x 1 ? Avoid Zosyn #Bilateral lower leg weakness Acute onset since this morning Patient usually walks with a walker, however unable to bear weight today Straight leg test negative Bilateral lower extremity strength 4 out of 5 Plan ? Physical therapy referral #Hypotension #Lactic acidosis Type A lactic acidosis (hypotension, tachycardia, organ dysfunction) vs type B lactic acidosis (metabolic conditions, medications, toxins) No concern regarding sepsis at this time Blood pressures have been soft in ED, after receiving 2 L IV fluids blood pressure was 92/61 with MAP 71 Initial lactic acid 4.6, after 2 L IVF, repeat 3.2 CT abdo/pelvis showed appendiceal thickening, mild perinephric stranding Plan ? Recheck lactic acid with a.m. lab ? LR 75 cc an hour X1 bag ? Follow-up blood culture #Constipation CT abdomen showed large amount of stool in the rectum along with gas buildup According to the patient last BM was 2 days ago Plan ? Enema ordered ? Once no longer n.p.o. start bowel regimen #Type II DM A1c level unknown Med rec pending Plan ? Insulin sliding scale ? Bedside glucose checks every 6 hours while NPO ? A1c level ordered #Left renal cyst CT Abdo pelvis showed incidental finding of 3 cm left renal cyst Plan ? No inpatient intervention at this time Health Maintenance: Diet: N.p.o. pending surgical eval GI prophylaxis: None DVT prophylaxis: Lovenox Antibiotics: Metronidazole and ciprofloxacin CODE STATUS: Full Disposition: MedSur Case discussed with my attending Dr. Fu, and senior resident, Dr. Qamar Mccabe MD PGY-1 Attending Provider Attestation/Addendum After examination of the patient and review of the clinical data I feel that this patient needs admission to the hospital for further treatment/evaluation. Plan of care discussed with patient and is in agreement. I Christy Fu MD, attest that I was physically present for fritz portions of evaluation, and examined patient, labs and imagings and plan of care were discussed with IM residents team, and I agree with the findings and plans documented above.
[2025-01-13] MEDS: ACETAMINOPHEN 325 MG TABLET 650 MG PO (01:49)
[2025-01-13] MEDS: RINGERS LACTATED 1000 ML 1,000 ML 75 ML IV (01:50)
--- NOTE | 2025-01-13 01:50 | PC.NURSE ---
THIS RN WALKED INTO PATIENT ROOM. PATIENT HAS VISIBLE DROPLETS, WARM AND LEFT ARM IS FLUSHED. PROVIDER MASON INFORMED. VERBAL ORDERS RECIEVED PER PROVIDER.
[2025-01-13] MEDS: MethylPREDNISolone SOD SUCC 62.5 MG/ML 2ML VIAL 60 MG IVP (02:01)
[2025-01-13] MEDS: metroNIDAZOLE/NS 500 MG IVPB 500 MG/100 ML BAG 200 MG IV ×2 (02:55→06:39)
[2025-01-13] MEDS: CIPROFLOXACIN/D5w 400 MG IVPB 400 MG/200 ML BAG 200 MG IV ×2 (03:39→08:29)
[2025-01-13 05:54] LABS: Lactate (Lactic Acid) 1.3 mMol/L (0.4-2.0)
[2025-01-13 06:03] LABS: Basophils # (Auto) 0.0 Thou/mm3 (0.0-0.2); Basophils % (Auto) 1 % (0-2.5); Eosinophils # (Auto) 0.0 Thou/mm3 (0.0-0.5); Eosinophils % (Auto) 0 % (0-10); Hematocrit 39.4 % (41.0-53.0); Hemoglobin 13.4 g/dL (13.5-16.0); Immature Granulocytes Auto 0.01 Thou/mm3 (0.00-0.00); Lymphocytes # (Auto) 0.8 Thou/mm3 (1.0-4.8); Lymphocytes % (Auto) 16 % (10-50); Mean Corpuscular HGB Conc 34.0 g/dl (31.0-37.0); Mean Corpuscular Hemoglobin 32.4 pg (25.0-35.0); Mean Corpuscular Volume 95 fL (80-100); Monocytes # (Auto) 0.3 Thou/mm3 (0.0-0.8); Monocytes % (Auto) 5 % (0-12); Neutrophils # (Auto) 4.0 Thou/mm3 (1.8-7.7); Neutrophils % (Auto) 79 % (37-80); Nucleated Red Blood Cell # 0.00 Thou/mm3 (0.00-0.00); Nucleated Red Blood Cell % 0 /100 WBC (0); Platelet Count 172 Thou/mm3 (140-440); RDW Standard Deviation 47.8 fL (35.1-43.9); Red Blood Count 4.13 Miln/mm3 (4.50-5.90); White Blood Count 5.1 Thou/mm3 (3.8-10.6)
[2025-01-13 06:05] LABS: Glucose Estimated Average 137 mg/dL (80-131); Hemoglobin A1C 6.4 % Hgb (4.8-6.0)
[2025-01-13 06:38] LABS: Alanine Aminotransferase 31 U/L (10-49); Albumin, Serum 3.6 gm/dL (3.4-4.8); Albumin/Globulin Ratio 1.9 (1.2-2.2); Alkaline Phosphatase 65 U/L (46-116); Anion Gap 9 (7-16); Aspartate Amino Transferase 63 U/L (0-34); BUN/Creatinine Ratio 30 Ratio (12-20); Bilirubin,Total 0.4 mg/dL (0.3-1.2); Blood Urea Nitrogen 21 mg/dL (9-23); Calcium 7.6 mg/dL (8.3-10.6); Calcium (Corrected) 7.9 mg/dL (8.5-10.1); Carbon Dioxide 22.7 mMol/L (20.0-31.0); Chloride 107 mMol/L (98-107); Creatinine (Component) 0.7 mg/dL (0.6-1.3); Estimated Creatinine Clearance 90.4 mL/min (>60); Globulin 1.9 gm/dL (2.3-3.5); Glucose 134 mg/dL (74-106); Magnesium 2.0 mg/dL (1.6-2.6); Osmolality,Calculated 282 (275-295); Potassium 3.6 mMol/L (3.4-5.1); Sodium 139 mMol/L (136-145); Total Protein 5.5 gm/dL (5.7-8.2); eGFR > 60 See Note
[2025-01-13] MEDS: ENOXAPARIN SOD INJ 40 MG/0.4 ML SYRINGE SC (08:29)
--- NOTE | 2025-01-13 08:50 | PD.RESPRO ---
Documentation for date of: 01/13/25 Exam Vital Signs Temp Pulse Resp BP Pulse Ox O2 Del Method O2 Flow Rate 97.4 F 85 17 95/60 94 L Nasal Cannula 3 01/13/25 07:47 01/13/25 07:47 01/13/25 07:47 01/13/25 07:47 01/13/25 07:47 01/13/25 07:47 01/13/25 07:47 Objective Labs 01/13/25 05:45 01/13/25 05:45 Labs: Laboratory Results - last 24 hr 01/12/25 01/12/25 01/12/25 16:14 16:50 19:56 WBC 8.8 RBC 4.73 Hgb 15.3 Hct 44.6 MCV 94 MCH 32.3 MCHC 34.3 RDW Std Deviation 46.7 H Plt Count 210 Neut % (Auto) 85 H Lymph % (Auto) 8 L [place] % (Auto) 6 Eos % (Auto) 0 Baso % (Auto) 1 Neut # (Auto) 7.5 Lymph # (Auto) 0.7 L [place] # (Auto) 0.5 Eos # (Auto) 0.0 Baso # (Auto) 0.0 Immature Gran # (Auto) 0.03 H Absolute Nucleated RBC 0.00 Immature Gran % 0 Nucleated RBC % 0 ESR 17 Sodium 136 Potassium 4.1 Chloride 101 Carbon Dioxide 22.5 Anion Gap 13 BUN 18 Creatinine 0.8 Estim Creat Clear Calc 74.9 eGFR > 60 BUN/Creatinine Ratio 23 H Glucose [address] Glu mg/dL Hemoglobin A1c Calculated Osmolality 278 Lactic Acid 4.6 H* Calcium 8.7 Corrected Calcium 8.7 Magnesium Total Bilirubin 0.4 AST 53 H ALT 25 Alkaline Phosphatase 81 Total Protein 6.4 Albumin 4.5 Globulin 1.9 L Albumin/Globulin Ratio 2.4 H Ur Collection Type Clean Catch Urine Color Yellow Urine Clarity Hazy Urine pH 6.0 Ur Specific [place] 1.030 Urine Protein 1+ A Urine Glucose (UA) 4+ A Urine Ketones Negative Urine Blood 3+ A Urine Nitrite Negative Urine Bilirubin Negative Urine Urobilinogen (Auto) Negative Ur Leukocyte Esterase Negative Urine RBC 5 H Urine WBC 2 Ur Squamous Epith Cells 1 Urine Bacteria None Ur Culture Indicated? Not Indicated 01/12/25 01/13/25 23:12 05:45 WBC 5.1 D RBC 4.13 L Hgb 13.4 L Hct 39.4 L MCV 95 MCH 32.4 MCHC 34.0 RDW Std Deviation 47.8 H Plt Count 172 D Neut % (Auto) 79 Lymph % (Auto) 16 [place] % (Auto) 5 Eos % (Auto) 0 Baso % (Auto) 1 Neut # (Auto) 4.0 Lymph # (Auto) 0.8 L [place] # (Auto) 0.3 Eos # (Auto) 0.0 Baso # (Auto) 0.0 Immature Gran # (Auto) 0.01 H Absolute Nucleated RBC 0.00 Immature Gran % 0 Nucleated RBC % 0 ESR Sodium 139 Potassium 3.6 D Chloride 107 Carbon Dioxide 22.7 Anion Gap 9 BUN 21 Creatinine 0.7 Estim Creat Clear Calc 90.4 eGFR > 60 BUN/Creatinine Ratio 30 H Glucose [address] Glu mg/dL 137 H Hemoglobin A1c 6.4 H Calculated Osmolality 282 Lactic Acid 3.2 H 1.3 Calcium 7.6 L Corrected Calcium 7.9 L Magnesium 2.0 Total Bilirubin 0.4 AST 63 H ALT 31 Alkaline Phosphatase 65 Total Protein 5.5 L Albumin 3.6 D Globulin 1.9 L Albumin/Globulin Ratio 1.9 Ur Collection Type Urine Color Urine Clarity Urine pH Ur Specific [place] Urine Protein Urine Glucose (UA) Urine Ketones Urine Blood Urine Nitrite Urine Bilirubin Urine Urobilinogen (Auto) Ur Leukocyte Esterase Urine RBC Urine WBC Ur Squamous Epith Cells Urine Bacteria Ur Culture Indicated? Quality Measures Quality Measures none Assessment & Plan Assessment Current Active Medications: Generic Name Dose Route Start Last Admin Trade Name Freq PRN Reason Stop Dose Admin Acetaminophen 650 mg 01/13/25 01:26 01/13/25 01:49 Acetaminophen 325 Mg Tablet PO 02/12/25 01:25 650 mg Q6H PRN Administration PAIN (1-3) OR FEVER > 100.4 Dextrose 25 ml 01/13/25 02:23 Dextrose 50%-Water Inj 50 Ml Syringe IV 02/12/25 02:22 Q15MIN PRN BG 50-70 responsive npo pt Dextrose 50 ml 01/13/25 02:23 Dextrose 50%-Water Inj 50 Ml Syringe IV 02/12/25 02:22 Q15MIN PRN BG <50 OR BG <70 & pt unresponsive Enoxaparin Sodium 40 mg 01/13/25 09:00 01/13/25 08:29 Enoxaparin Sod Inj 40 Mg/0.4 Ml Syringe SC 01/27/25 08:59 40 mg QDAY JOHN Administration Glucagon 1 mg 01/13/25 02:23 Glucagon Inj 1 Mg Vial IM Q15MIN PRN BG <70, and no IV access Lactated Ringer's 1,000 mls @ 75 mls/hr 01/13/25 01:30 01/13/25 01:50 Lactated Ringers IV 01/13/25 14:49 75 mls/hr .[id number] JOHN Administration Metronidazole 500 mg in 100 mls @ 200 mls/hr 01/13/25 01:31 01/13/25 06:39 Flagyl 500 Mg Iv IV 01/20/25 01:30 200 mls/hr Q8HR JOHN Administration Ciprofloxacin/Dextrose 400 mg in 200 mls @ 200 mls/hr 01/13/25 01:31 01/13/25 08:29 Cipro Ivpb IV 01/20/25 01:30 200 mls/hr Q12HR JOHN Administration Insulin Human Lispro 0 unit 01/13/25 07:30 01/13/25 07:42 Insulin Lispro (Admelog) 1 Unit/0.01 Ml Unit SC 02/12/25 07:29 Not Given AC JOHN Protocol Lactulose 20 gm 01/13/25 00:18 Lactulose Syrup 20 Gm/30 Ml Udc PO 02/12/25 00:17 X1 PRN constipation Protocol Ondansetron HCl 4 mg 01/13/25 01:26 Ondansetron Inj 2 Mg/Ml Inj 2 Ml IVP 02/12/25 01:25 Q6H PRN NAUSEA OR VOMITING Protocol
--- NOTE | 2025-01-13 10:03 | PD.SURCONS ---
HPI Consult details Consult date: 01/13/25 Reason for consultation narrative: The patient was seen for a possible appendicitis and was admitted through the emergency room with multiple medical problems. History of present illness: Patient cannot give any history because of his developmental disorder. Patient does not have any abdominal pain. He was mostly complaining of back pain Meds Home Medications and Allergies Home Medications ?Medication ?Instructions ?Recorded ?Confirmed ?Type amitriptyline 25 mg tablet 25 mg PO HS 02/29/24 01/13/25 History benztropine 1 mg tablet 1 mg PO HS 02/29/24 01/13/25 History dorzolamide 22.3 mg-timolol 6.8 1 drp ophthalmic (eye) BID 02/29/24 01/13/25 History mg/mL eye drops empagliflozin 5 mg-metformin 1,000 1 tab PO BID 02/29/24 01/13/25 History mg tablet (Synjardy) erythromycin 5 mg/gram (0.5 %) eye 1 applic Left eye TID 02/29/24 01/13/25 History ointment latanoprost 0.005 % eye drops 1 drp ophthalmic (eye) HS 02/29/24 01/13/25 History montelukast 10 mg tablet 10 mg PO HS 02/29/24 01/13/25 History quetiapine 200 mg tablet 200 mg PO BID 02/29/24 01/13/25 History risperidone 3 mg tablet 3 mg PO HS 02/29/24 01/13/25 History simvastatin 20 mg tablet 20 mg PO HS 02/29/24 01/13/25 History ferrous sulfate 325 mg (65 mg 325 mg PO .COMPLEX 04/07/24 01/13/25 History iron) tablet (FeroSul) fluticasone propionate 50 1 spray intranasal DAILY 04/07/24 01/13/25 History mcg/actuation nasal spray,suspension loratadine 10 mg tablet (Allergy 10 mg PO Q24H 04/07/24 01/13/25 History Relief (loratadine)) Allergies Allergy/AdvReac Type Severity Reaction Status Date / Time piperacillin (From Zosyn) Allergy FEVER Verified 01/13/25 01:51 tazobactam (From Zosyn) Allergy FEVER Verified 01/13/25 01:51 Exam Vital Signs Temp Pulse Resp BP Pulse Ox O2 Del Method O2 Flow Rate 97.4 F 84 20 95/60 94 L Nasal Cannula 3 01/13/25 07:47 01/13/25 08:34 01/13/25 08:34 01/13/25 07:47 01/13/25 08:34 01/13/25 07:47 01/13/25 08:34 Narrative Exam Physical examination reveals 74-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 Right lower quadrant is negative for any tenderness in McBurney's point shows no tenderness Results Results: Laboratory Laboratory Narrative: Laboratory results are within normal limits Results: Imaging Additional studies: CT scan showed slightly enlarged appendix with no inflammation Assessment & Plan Additional Assessment Additional comments: Impression: Patient does not have any evidence of appendicitis Plan Plan: Patient's other medical problem can be addressed and he can be discharged.
--- NOTE | 2025-01-13 11:10 | ESDS_ITS ---
<Statement entered by Juana Blackwell MD - 01/23/25 08:32> I reviewed above note and agree with findings and plans. I have also personally examined the patient with medicine team and went over assessment and plan with medical team including industrial design intern and resident physician. Planned Discharge Date 01/13/25 DS: Providers Provider Date of admission: 01/13/25 01:26 Primary care physician: Demetrio Mcbride MD Admitting Provider: Christy Fu MD Attending Provider on Admission: Christy Fu MD Consults: 01/13/25 01:30 Consult to General Surgery Routine Comment: acute appendicitis Consulting Provider: Denzel Barth 01/13/25 01:32 Referral Physical Therapy Routine Comment: Physician Instructions: Attending Provider on DC: Klever Blackwell MD Discharging Provider: Klever Blackwell MD DS: Diagnosis Problem List Completed Was Problem List Reviewed/Reconciled?: Yes Hospital Course Hospital Course Hospital course: Hospital Course Mr. Gillette is a 74-year-old male with a history of autism, mild mitral regurg, and type 2 diabetes mellitus who presented with with right-sided abdominal pain radiating to the groin, along with lower leg weakness and balance difficulties,for one day. labs were unremarkable for markers of infection and CTAP with Appendix is thickened, 8 mm possible minimal periappendiceal inflammatory. Surgery was consulted who stated that patient did not have acute appendicititis and would not require surgical intervention. Of note patient had allergic reaction to zosyn, with febrile response, for which he received benydryl and apap. Subsequently patient was started on cipro and flagyl. given that the patient did present with some rlq tenderness, plan to discharge patient with abx course. Patient was hemodynamically stable, labs were reviewed, pain was well controlled, patient denies any shortness of breath and is saturating >94% on RA, is able to ambulate per his baseline and deemed stable and medically cleared for discharge. Restraints were not indicated for this patient. Diagnoses #Type II DM #Left renal cyst 3cm #Constipation #Hypotension- resolved #Lactic acidosis- resolved Discharge instructions -please continue taking the two new antibiotics, ciprofloxacin and metronidazole, for 8 more days. -Follow up with PCP within 1 week of discharge, if you do not have a primary care physician you can come see us at the [facility] by calling [phone] -Continue rest of medications as previously prescribed -Return to the ED or call EMS if symptoms return and/or worsen Plan discussed with my attending Dr. Rishi López MD PGY1 Time Spent with Patient Time attestation: Total time spent providing and/or coordinating discharge services: Time spent: Greater than 30 minutes Exam Vital Signs Temp Pulse Resp BP Pulse Ox O2 Del Method O2 Flow Rate 97.4 F 84 20 95/60 94 L Nasal Cannula 3 01/13/25 07:47 01/13/25 08:34 01/13/25 08:34 01/13/25 07:47 01/13/25 08:34 01/13/25 07:47 01/13/25 08:34 Narrative Exam General: AOx3, no acute distress, able to speak full sentences HEENT: NC/AT, mucous membranes moist, bilateral sclera anicteric Cardiovascular: regular rate and rhythm, S1/S2 present, Pulmonary: clear to auscultation bilaterally, no rales/rhonchi/wheezes Abdominal: soft, nontender to palpation, no rebound/guarding, normal bowel sounds present Musculoskeletal: normal ROM, no peripheral edema, straight leg test negative Skin: warm and dry, intact, no rashes, Neuro: CN II-XII intact, no focal deficits Discharge Plan Plan Patient Disposition: HOME (Self Care) Patient condition on transfer: Stable Care Plan Goals: - please continue taking the two new antibiotics, ciprofloxacin and metroni dazole, for 8 more days. -Follow up with PCP within 1 week of discharge, if you do not have a primary care physician you can come see us at the [facility] by calling [phone] -Continue rest of medications as previously prescribed -Return to the ED or call EMS if symptoms return and/or worsen Prescriptions/Referrals Prescriptions/Med Rec: New ciprofloxacin HCl 500 mg tablet 500 mg PO BID 8 Days Qty: 16 0RF metronidazole 500 mg tablet 500 mg PO Q8H 8 Days Qty: 24 0RF Continued latanoprost 0.005 % drops 1 drp OPHTHALMIC (EYE) HS Rx Instructions: LEFT EYE quetiapine 200 mg tablet 200 mg PO BID risperidone 3 mg tablet 3 mg PO HS amitriptyline 25 mg tablet 25 mg PO HS simvastatin 20 mg tablet 20 mg PO HS erythromycin 5 mg/gram (0.5 %) ointment 1 applic Left eye TID benztropine 1 mg tablet 1 mg PO HS dorzolamide-timolol 22.3-6.8 mg/mL drops 1 drp OPHTHALMIC (EYE) BID montelukast 10 mg tablet 10 mg PO HS Synjardy 5-1,000 mg tablet 1 tab PO BID fluticasone propionate 50 mcg/actuation spray,suspension 1 spray intranasal DAILY ferrous sulfate [FeroSul] 325 mg (65 mg iron) tablet 325 mg PO .COMPLEX Rx Instructions: 325 mg orally M/W/; loratadine [Allergy Relief (loratadine)] 10 mg tablet 10 mg PO Q24H Referrals: Demetrio Mcbride MD [Primary Care Provider, Family Practice] Patient/Caregiver Discharge Instructions Print Language: Citizen Of [place] Stand Alone Forms: Nasreen Award Info., Patient Portal Info Letter Discharge Order Discharge Orders: Discharge (Routine); Ordered 01/13/25 Ordered By: Marlys López Quality Discharge Quality Measures VTE prophylaxis
[2025-01-13] MEDS: INSULIN LISPRO (AdmeLOG) 1 UNIT/0.01 ML UNIT SC (11:28)
--- NOTE | 2025-01-13 11:36 | EKG_ITS ---
[facility] Test Date: 2025-01-13 Pat Name: REINIER PALOMO 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
== END 2025-01-13 13:08 | disposition home or self-care (01) | DRG 394 ==
LOC: SERX 22:41 → SERHOLD 01-13 01:53 → S3SX 01-13 02:25
PROVIDERS: Nurse Practitioner Family; Admitting Provider Student in an Organized Health Care Education/Training Program; Emergency Provider Emergency Medicine; PCP Family Medicine; Visit Provider Student in an Organized Health Care Education/Training Program
DX: K35.80 Unspecified acute appendicitis (principal); E87.20 Acidosis, unspecified; F84.0 Autistic disorder; I95.9 Hypotension, unspecified; K59.00 Constipation, unspecified; M41.9 Scoliosis, unspecified; N28.1 Cyst of kidney, acquired; E11.9 Type 2 diabetes mellitus without complications; G89.29 Other chronic pain; T36.0X5A Adverse effect of penicillins, initial encounter; Z79.84 Long term (current) use of oral hypoglycemic drugs; Z88.8 Allergy status to other drugs, medicaments and biological substances
CPT/HCPCS: 36415; 51701; 70450; 71045; 72100; 74176; 80053; 81001; 83036; 83605; 83735; 85025; 85652; 87040; 93005; 96361; 96365; 96366; 96372; 96375; 99284; J0744; J1200; J1650; J1815; J1885; J2543; J2919; J3490; J7030; J7120; A9270; J1836

== ENCOUNTER 2025-02-13 10:42 | Emergency (ER) | payer MEDICARE, MEDICAID, SELFPAY ==
[2025-02-13 10:56] VITALS: BP 99/68; PULSE 99; RESP 19; TEMP 36.6; O2SAT 95
--- NOTE | 2025-02-13 11:07 | EKG_ITS ---
[facility] Test Date: 2025-02-13 Pat Name: REINIER PALOMO Department: Room: - Gender: Male [employer] Manager: : 1950 Requested By: Miah Amaya (HARSHAL) Order Number: [id number] Reading MD: Miah Amaya (HARSHAL) Measurements Intervals [place] Rate: 106 P: -41 CA: 164 QRS: -11 QRSD: 90 T: 32 QT: 307 QTc: 408 Interpretive Statements SINUS TACHYCARDIA POSSIBLE LEFT ATRIAL ENLARGEMENT [-0.1mV P-WAVE IN V1/V2] LOW QRS VOLTAGE IN EXTREMITY LEADS [QRS DEFLECTION < 0.5 mV IN LIMB LEADS] PATTERN CONSISTENT WITH PULMONARY DISEASE ST DEVIATION AND MODERATE T-WAVE ABNORMALITY, CONSIDER ANTEROLATERAL ISCHEMIA [-0.1+ mV T-WAVE IN V3-V6] Compared to ECG 01/13/2025 11:55:30 T-wave abnormality now present Possible ischemia now present Sinus rhythm no longer present /store/S0/[id number].pdf
[2025-02-13 11:54] LABS: Lactate (Lactic Acid) 2.7 mMol/L (0.4-2.0)
[2025-02-13 11:56] LABS: Basophils # (Auto) 0.1 Thou/mm3 (0.0-0.2); Basophils % (Auto) 1 % (0-2.5); Eosinophils # (Auto) 0.2 Thou/mm3 (0.0-0.5); Eosinophils % (Auto) 1 % (0-10); Hematocrit 44.0 % (41.0-53.0); Hemoglobin 14.9 g/dL (13.5-16.0); Immature Granulocytes Auto 0.04 Thou/mm3 (0.00-0.00); Lymphocytes # (Auto) 2.7 Thou/mm3 (1.0-4.8); Lymphocytes % (Auto) 23 % (10-50); Mean Corpuscular HGB Conc 33.9 g/dl (31.0-37.0); Mean Corpuscular Hemoglobin 32.1 pg (25.0-35.0); Mean Corpuscular Volume 95 fL (80-100); Monocytes # (Auto) 1.8 Thou/mm3 (0.0-0.8); Monocytes % (Auto) 15 % (0-12); Neutrophils # (Auto) 7.0 Thou/mm3 (1.8-7.7); Neutrophils % (Auto) 59 % (37-80); Nucleated Red Blood Cell # 0.00 Thou/mm3 (0.00-0.00); Nucleated Red Blood Cell % 0 /100 WBC (0); Platelet Count 233 Thou/mm3 (140-440); RDW Standard Deviation 47.8 fL (35.1-43.9); Red Blood Count 4.64 Miln/mm3 (4.50-5.90); White Blood Count 11.8 Thou/mm3 (3.8-10.6)
--- NOTE | 2025-02-13 12:14 | PD.EDRME ---
Rapid Medical Screening Exam RME Arrival date/time: 02/13/25 10:42 74-year-old male presents to the emergency room today with caregiver who reports the patient has abdominal distention and dysuria Chief Complaint: Abdominal Pain Vital signs: Vital Signs Temperature 97.8 F 02/13/25 10:56 Pulse Rate 99 02/13/25 10:56 Respiratory Rate 19 02/13/25 10:56 Blood Pressure 99/68 02/13/25 10:56 Pulse Oximetry (%) 95 02/13/25 10:56 Oxygen Delivery Method Room Air 02/13/25 10:56 Vital signs reviewed by provider: Yes Exam: On exam patient does not appear ill or toxic Clinical Impression: Labs, imaging to be obtained patient be seen in main ER for the evaluation
[2025-02-13 12:21] LABS: Alanine Aminotransferase 18 U/L (10-49); Albumin, Serum 4.4 gm/dL (3.4-4.8); Albumin/Globulin Ratio 1.4 (1.2-2.2); Alkaline Phosphatase 97 U/L (46-116); Anion Gap 11 (7-16); Aspartate Amino Transferase 15 U/L (0-34); BUN/Creatinine Ratio 20 Ratio (12-20); Bilirubin,Total 0.5 mg/dL (0.3-1.2); Blood Urea Nitrogen 12 mg/dL (9-23); Calcium 9.3 mg/dL (8.3-10.6); Calcium (Corrected) 9.3 mg/dL (8.5-10.1); Carbon Dioxide 22.6 mMol/L (20.0-31.0); Chloride 104 mMol/L (98-107); Creatinine (Component) 0.6 mg/dL (0.6-1.3); Globulin 3.1 gm/dL (2.3-3.5); Glucose 66 mg/dL (74-106); Lipase 30 U/L (12-53); Osmolality,Calculated 273 (275-295); Potassium 4.1 mMol/L (3.4-5.1); Procalcitonin 0.06 ng/ml (0.0-0.49); Sodium 138 mMol/L (136-145); Total Protein 7.5 gm/dL (5.7-8.2); Troponin I < 0.020 ng/mL (0.0-0.045); eGFR > 60 See Note
[2025-02-13 13:19] LABS: Collection Type, Urine Clean Catch
[2025-02-13 13:31] LABS: Bilirubin,Urine Negative (Negative); Blood,Urine Negative (Negative); Clarity,Urine Clear (Clear/Hazy); Color,Urine Yellow (Lt Yel-Yel); Glucose, Urine 4+ (Negative); Ketones,Urine Negative (Negative); Leukocyte Esterase,Urine Negative (Negative); Nitrite,Urine Negative (Negative); PH,Urine 6.0 (5.0-7.0); Protein,Urine Negative (Neg - Trace); RBC,Urine 2 /hpf (0-3); Specific Gravity,Urine 1.019 (1.001-1.035); Squamous Epithelial Cell,Urine 1 /hpf (0-5); Urobilinogen,Urine Negative mg/dL (0.0-1.0); WBC,Urine 3 /hpf (0-5)
[2025-02-13 14:50] LABS: Reflex Lactate? Y
[2025-02-13 15:43] LABS: Lactic Acid, 3 HR 1.4 mMol/L (0.4-2.0)
[2025-02-13 16:02] VITALS: BP 105/69; PULSE 87; RESP 18; TEMP 36.9; O2SAT 94
[2025-02-13 16:08] VITALS: PULSE 83; PULSE 85; RESP 12; RESP 98
--- NOTE | 2025-02-13 16:08 | XR_ITS ---
EXAMINATION: AP chest single view TECHNIQUE: AP portable upright chest single view Date and time: February 13, 2025, 1622 hours, comparison January 12, 2025 INDICATION: Coughing chest pain today FINDINGS: Normal heart size Mild vascular congestion. No lobar pneumonia or pulmonary edema. Prominent osteopenia IMPRESSION: Mild vascular congestion
--- NOTE | 2025-02-13 16:20 | PD.EDURI ---
Upper Respiratory Inf. RME/HPI General Chief Complaint: Abdominal Pain Stated Complaint: cough, abd. pain, distended, sent by pmd Time Seen by Provider: 02/13/25 12:15 Arrival date/time: 02/13/25 10:42 Limitations: no limitations RME / HPI RME / HPI Narrative: 02/13/25 10:42 74-year-old male presents to the emergency room today with caregiver who reports the patient has abdominal distention and dysuria DR. GREEN MAIN ED EVALUATION: 74 year old male with history of autism and diabetes presents to the ED brought in by caregivers for evaluation of cough, nasal congestion, headache, and malaise beginning yesterday. Accompanied by appearing confused this morning by putting on a dry brief over the wet soiled brief. Per caregiver, the patient attends work Wednesday through Wednesday and does not like to miss work. However, states yesterday after arriving home he had complained of feeling unwell and stated he did not want to work today. States she made an appointment with his PCP which they saw at 08:15 am today. Evidently while in the office, PCP noted the patients abdomen to feel tight and distended and advised to come here for further evaluation. No other associated symptoms reported. Denies fevers at home, chest pain, abdominal pain, n/v/d, or urinary symptoms. Caregiver mentioned the patient was admitted here ~ 1 month ago and treated with IV antibiotics for appendicitis. Exam: On exam patient does not appear ill or toxic Impression: Labs, imaging to be obtained patient be seen in main ER for the evaluation Related Data Home Medications ?Medication ?Instructions ?Recorded ?Confirmed amitriptyline 25 mg tablet 25 mg PO HS 02/29/24 01/13/25 benztropine 1 mg tablet 1 mg PO HS 02/29/24 01/13/25 dorzolamide 22.3 mg-timolol 6.8 1 drp ophthalmic (eye) BID 02/29/24 01/13/25 mg/mL eye drops empagliflozin 5 mg-metformin 1,000 1 tab PO BID 02/29/24 01/13/25 mg tablet (Synjardy) erythromycin 5 mg/gram (0.5 %) eye 1 applic Left eye TID 02/29/24 01/13/25 ointment latanoprost 0.005 % eye drops 1 drp ophthalmic (eye) HS 02/29/24 01/13/25 montelukast 10 mg tablet 10 mg PO HS 02/29/24 01/13/25 quetiapine 200 mg tablet 200 mg PO BID 02/29/24 01/13/25 risperidone 3 mg tablet 3 mg PO HS 02/29/24 01/13/25 simvastatin 20 mg tablet 20 mg PO HS 02/29/24 01/13/25 ferrous sulfate 325 mg (65 mg 325 mg PO .COMPLEX 04/07/24 01/13/25 iron) tablet (FeroSul) fluticasone propionate 50 1 spray intranasal DAILY 04/07/24 01/13/25 mcg/actuation nasal spray,suspension loratadine 10 mg tablet (Allergy 10 mg PO Q24H 04/07/24 01/13/25 Relief (loratadine)) Previous Rx's ?Medication ?Instructions ?Recorded magnesium hydroxide 2,400 mg/10 mL 30 ml PO QDAY PRN constipation #60 02/13/25 oral suspension (Milk Of Magnesia mL Concentrated) Allergies Allergy/AdvReac Type Severity Reaction Status Date / Time piperacillin (From Zosyn) Allergy FEVER Verified 02/13/25 10:45 tazobactam (From Zosyn) Allergy FEVER Verified 02/13/25 10:45 Review of Systems Review of Systems Systems Reviewed: All systems reviewed, normal except as documented Past Medical History Past Medical History CARDIAC: Positive Cardiac Disorders, Hypercholesterolemia and Hypertension RESPIRATORY: Positive Chronic Obstructive Pulmonary Disease (COPD) GASTROINTESTINAL: Positive Diverticulosis and Hemorrhoids MUSCULOSKELETAL: Positive Musculoskeletal Disorders and Arthritis ENDOCRINE: Positive Diabetes Mellitus Type 2 PSYCHO/SOCIAL: Positive Anxiety Surgical History SURGICAL: Positive Tonsillectomy Social History SMOKING STATUS: Never smoker ED Exam General Limitations: Present no limitations General appearance: Present alert and in no apparent distress Head Head exam: Present atraumatic, normocephalic and normal inspection Eye Eye exam: Present normal appearance, PERRL and EOMI ENT ENT exam: Present normal exam, normal oropharynx and mucous membranes moist Neck Neck exam: Present normal inspection, full ROM and trachea midline Chest Chest inspection: Present normal inspection and symmetric chest wall rise Respiratory Respiratory exam: Present normal lung sounds bilaterally Cardiovascular Cardiovascular exam: Present regular rate, normal rhythm and normal heart sounds Abdominal Exam Abdominal exam: Present soft, tenderness (mild right lower abdominal tenderness ), normal bowel sounds and other (The liver feels nodular with irregular contour) Extremities Exam Extremities exam: Present normal inspection and full ROM Back Exam Back exam: Present normal inspection and full ROM Neurological Exam Neurological exam: Present alert, oriented X3 and CN II-XII intact Psychiatric Psychiatric exam: Present normal affect and normal mood Skin Skin exam: Present warm, dry, intact and normal color Course Quality Measures none Orders Category Date Time Status Bedside COVID-19 Antigen Test NOW Care 02/13/25 16:21 Completed Bedside Influenza A&B Antigen Test NOW Care 02/13/25 16:[address] Screening NOW Care 02/13/25 16:22 Completed Counter Help NOW Care 02/13/25 16:08 Completed Continuous Pulse Oximetry NOW Care 02/13/25 16:08 Completed EKG (ED ONLY) *Do not use* NOW Care 02/13/25 11:08 Completed Insert IV NOW Care 02/13/25 16:[address] chest abdomen pelvis w Stat Exams 02/13/25 16:22 Completed EKG (ED Only) Stat Exams 02/13/25 11:07 Draft XR chest 1V portable Stat Exams 02/13/25 16:08 Completed Blood Culture (Lab) Stat Lab 02/13/25 11:39 Results CBC Stat Lab 02/13/25 11:34 Completed Comprehensive Metabolic Panel Stat Lab 02/13/25 11:34 Completed Lactate (Lactic Acid) Stat Lab 02/13/25 11:34 Completed Lactic Acid, 3 HR Stat Lab 02/13/25 15:30 Completed Lipase Stat Lab 02/13/25 11:34 Completed Procalcitonin Stat Lab 02/13/25 11:34 Completed Troponin I Stat Lab 02/13/25 11:34 Completed Urinalysis Stat Lab 02/13/25 13:14 Completed Urine Culture Stat Lab 02/13/25 13:14 Received Dextrose 50% Syr [D50w Syringe Abboject] Med 02/13/25 19:30 Discontinued 25 ml IVP X1 ONE Dextrose 50% Syr [D50w Syringe Abboject] Med 02/13/25 20:29 Discontinued 50 ml IVP X1 ONE Lactulose Syrup [Enulose Syrup] Med 02/13/25 21:08 Discontinued 20 gm PO X1 ONE Sodium Chloride 0.9% 1000 ml [Ns] 1,000 ml Med 02/13/25 16:08 Discontinued IV 999 mls/hr Oxygen Delivery NOW RT 02/13/25 16:08 Completed Vital Signs Vital signs: Vital Signs Temperature 97.8 F 02/13/25 10:56 Pulse Rate 99 02/13/25 10:56 Respiratory Rate 19 02/13/25 10:56 Blood Pressure 99/68 02/13/25 10:56 Pulse Oximetry (%) 95 02/13/25 10:56 Oxygen Delivery Method Room Air 02/13/25 10:56 Pulse ox is 95% on room air which is adequate. Upper Respiratory Infection MDM Narrative MDM Narrative:: Alexandra Kasper am scribing for and in the presence of Dr. Green. 1800: Care signed out to Dr. Martinez pending CT chest abdomen pelvis and final disposition. Patient data External records reviewed:: [facility] previous records Clinical information provided by:: patient and allergy specialist Social determinants that could affect healthcare access:: none Patient has the following chronic illnesses:: autism and diabetes How is presenting disease/condition affected by chronic disease/condition?: exacerbated by Evaluation data The following diagnostics were reviewed and interpreted by me:: lab results, radiology exam(s) and EKG tracing(s) (EKG @ 11:14am, interpreted by me, sinus tachycardia, rate 106, no STEMI. ) Lab and/or radiology exams considered but not ordered:: None Interpretation Summary: Ordering Physician: Rodri Green MD Date of Service: 02/13/25 Procedure(s): XR chest 1V portable Accession Number(s): [id number] cc: Rodri Green MD; Jacob Hare MD; NO PRIMARY/FAMILY,PHYSICIAN~ EXAMINATION: AP chest single view TECHNIQUE: AP portable upright chest single view Date and time: February 13, 2025, 1622 hours, comparison January 12, 2025 INDICATION: Coughing chest pain today FINDINGS: Normal heart size Mild vascular congestion. No lobar pneumonia or pulmonary edema. Prominent osteopenia IMPRESSION: Mild vascular congestion Dictated By: Jacob Hare MD Signed By: <Electronically signed by Jacob Hare MD in OV> 02/13/25 1648 Medications / Prescriptions Medications or Prescriptions considered but not ordered:: None Medication administrations:: Medication Administration History Discontinued Medications Dextrose (Dextrose 50%-Water Inj 50 Ml Syringe) 25 ml IVP X1 ONE Stop: 02/13/25 19:31 Last Admin: 02/13/25 20:29 Dose: Not Given Documented By: Non-Admin Reason: Cancelled by Provider Dextrose (Dextrose 50%-Water Inj 50 Ml Syringe) 50 ml IVP X1 ONE Stop: 02/13/25 20:30 Last Admin: 02/13/25 21:01 Dose: 50 ml Documented By: ESTER Sodium Chloride (Ns) 1,000 mls @ 999 mls/hr IV .Q1H1M ONE Stop: 02/13/25 17:08 Last Infusion: 02/13/25 18:20 Dose: Infused Documented By: Admin: 02/13/25 17:19 Dose: 999 mls/hr Documented By: YANIRA Lactulose (Lactulose Syrup 20 Gm/30 Ml Udc) 20 gm PO X1 ONE; Protocol Stop: 02/13/25 21:09 Last Admin: 02/13/25 22:04 Dose: Not Given Documented By: ESTER Non-Admin Reason: Patient Refused See above Consultations Consultation(s) initiated? (list below): No Diagnosis Upper Respiratory Differential Diagnosis: upper respiratory infection, sinusitis, viral infection, bronchitis and influenza Most likely diagnosis given after review of the tests above:: Abdominal pain, constipation, URI Admission Indicated Admission indicated?: not indicated Explain why admission is indicated or not indicated:: Signed out pending CT and final disposition. Admission Request Was there a request for admission?: No Disposition Plan Disposition Plan: other (specify) (Signed out to Dr. Martinez ) Discharge Plan Plan Patient Disposition: HOME (Self Care) Prescriptions/Referrals Prescriptions/Med Rec: New magnesium hydroxide [Milk Of Magnesia Concentrated] 2,400 mg/10 mL suspension 30 ml PO QDAY PRN (Reason: constipation) Qty: 60 0RF No Action latanoprost 0.005 % drops 1 drp OPHTHALMIC (EYE) HS Rx Instructions: LEFT EYE quetiapine 200 mg tablet 200 mg PO BID risperidone 3 mg tablet 3 mg PO HS amitriptyline 25 mg tablet 25 mg PO HS simvastatin 20 mg tablet 20 mg PO HS erythromycin 5 mg/gram (0.5 %) ointment 1 applic Left eye TID benztropine 1 mg tablet 1 mg PO HS dorzolamide-timolol 22.3-6.8 mg/mL drops 1 drp OPHTHALMIC (EYE) BID montelukast 10 mg tablet 10 mg PO HS Synjardy 5-1,000 mg tablet 1 tab PO BID fluticasone propionate 50 mcg/actuation spray,suspension 1 spray intranasal DAILY ferrous sulfate [FeroSul] 325 mg (65 mg iron) tablet 325 mg PO .COMPLEX Rx Instructions: 325 mg orally M//; loratadine [Allergy Relief (loratadine)] 10 mg tablet 10 mg PO Q24H Referrals: No Primary/Family,Physician [Primary Care Provider] - In 1 week Problem List Clinical Impression: Constipation Patient/Caregiver Discharge Instructions Discharge Activity: activity as tolerated Education Materials: ED Constipation (Adult) Additional Instructions: Discharge instructions from Dr. Martinez printed for you: -- After extensive evaluation, there is no emergency.? Such as appendicitis needing urgent surgery. And there is no serious infection. Such as pneumonia or urine infection or COVID or Influenza. -- You have severe constipation. -- You were given Lactulose here to help. Take Milk of Magnesia as prescribed. -- Wearing gloves and applying KY jelly, insert finger into the rectum and try to evacuate the rectum. This may help the most. -- To help current constipation and prevent future constipation, increase oral fluid because dehydration cause severe constipation.? Maintain clear urine.? If dark or yellow, increase oral fluid. -- And every day, increase fresh fruits and fresh vegetables and physical exercise. -- See a private doctor on 02/16/2025 for recheck. Ask to review all test results and official radiology reports, to make sure you receive all necessary follow-ups and monitoring. To make sure there is no serious underlying abdominal condition, ask to help you get more care not available here in the ER.? Such as EGD or scoping of your stomach, colonoscopy or scoping the colon, and a referral to see a electric golf cart repairers. -- Seek immediate medical care with worsening or with any concerns. Print Language: [place] Stand Alone Forms: Nasreen Award Info., Patient Portal Info Letter
--- NOTE | 2025-02-13 16:22 | XR_ITS ---
Examination: CT chest with intravenous contrast CT abdomen with intravenous contrast CT pelvis with intravenous contrast 2-D coronal and sagittal reconstructions Time of exam: February 13, 2025, 1923 hours INDICATION: Chest pain abdominal pain CTDI: vol (mGy) : 5.89 DLP: (mGycm): 458 Technique: Multiple axial images of the chest, abdomen and pelvis with intravenous contrast, 3.0 mm slice thickness. Images obtained post intravenous injection Isovue 370 60 cc. 2-D sagittal and coronal reconstructions. Low dose protocols were performed. One or more of the following dose reduction techniques were used; automated exposure control, adjustment of the mA and/or KV according to patient size, use of iterative reconstruction technique. Findings: No thoracic aortic aneurysmal dilatation or dissection Pulmonary artery segments are significantly reduced in contrast No mediastinal adenopathy Trace pericardial effusion Minor atelectasis in the lower lung zones No visualized liver or splenic lesion Large amounts of stool throughout the entire colon No pancreatic mass No definite gallstones No hydronephrosis renal or ureteral calculi Abdominal aorta normal size Normal appendix Very large amounts of stool in the rectum with thickening of the rectal wall Bladder intact Severe osteopenia IMPRESSION: Minor atelectasis in the lower lung zones Very large amounts of stool throughout the entire colon especially in the rectosigmoid with diffuse thickening of the rectal wall, differential would include proctitis, rectal tumor not excluded, clinical correlation advised Recommend direct inspection of the rectum
[2025-02-13] MEDS: SODIUM CHLORIDE 0.9% 1000 ML 1,000 ML 999 ML IV (17:19)
[2025-02-13 18:03] VITALS: BP 119/74; PULSE 65; RESP 20; TEMP 36.7; O2SAT 96
--- NOTE | 2025-02-13 18:44 | PD.EDADDENDU ---
Emergency Room Addendum Addendum Narrative: I took over the care from previous shift physician, Dr. Abdul, at _6PM_ on _02/13/25_. See previous notes for complete H & P and ED course. I reviewed all diagnostic test results. My interpretation of the EKG is: Sinus tachycardia (106 bpm) with nonspecific ST-T changes. My interpretation of the chest x-ray is NAD. My review of the chest/abdominal CT report is constipation. Blood tests and urine tests remarkable for Glu 66. Diagnoses include: Constipation Hypoglycemia Treatment here included: IVF D50 Lactulose Recommended a trial of outpatient treatment. Based on my best medical judgment, made decision no further evaluation or treatment indicated at this time. residential staff understands and agrees to the discharge instructions customized and printed, see below. Discharge instructions from Dr. Martinez printed for you: -- After extensive evaluation, there is no emergency.? Such as appendicitis needing urgent surgery. And there is no serious infection. Such as pneumonia or urine infection or COVID or Influenza. -- You have severe constipation. -- You were given Lactulose here to help. Take Milk of Magnesia as prescribed. -- Wearing gloves and applying KY jelly, insert finger into the rectum and try to evacuate the rectum. This may help the most. -- To help current constipation and prevent future constipation, increase oral fluid because dehydration cause severe constipation.? Maintain clear urine.? If dark or yellow, increase oral fluid. -- And every day, increase fresh fruits and fresh vegetables and physical exercise. -- See a private doctor on 02/16/2025 for recheck. Ask to review all test results and official radiology reports, to make sure you receive all necessary follow-ups and monitoring. To make sure there is no serious underlying abdominal condition, ask to help you get more care not available here in the ER.? Such as EGD or scoping of your stomach, colonoscopy or scoping the colon, and a referral to see a greensman. -- Seek immediate medical care with worsening or with any concerns. River Martinez MD
[2025-02-13 20:43] VITALS: BP 116/66; PULSE 85; RESP 18; TEMP 36.8; O2SAT 96
[2025-02-13] MEDS: DEXTROSE 50%-WATER INJ 50 ML SYRINGE IVP (21:01)
[2025-02-13 22:05] VITALS: BP 118/70; PULSE 80; RESP 17; TEMP 36.7; O2SAT 96
== END 2025-02-13 22:10 | disposition home or self-care (01) ==
PROVIDERS: Nurse Practitioner Primary Care; Emergency Provider Emergency Medicine
DX: K59.00 Constipation, unspecified (principal); R09.89 Other specified symptoms and signs involving the circulatory and respiratory systems; E11.649 Type 2 diabetes mellitus with hypoglycemia without coma; F84.0 Autistic disorder; R00.0 Tachycardia, unspecified
CPT/HCPCS: 36415; 71045; 71260; 74177; 80053; 81001; 83605; 83690; 84145; 84484; 85025; 87040; 87086; 87186; 87502; 87635; 93005; 96361; 96374; 99285; A4649; J7030; Q9967